=== PATIENT | female | born 1990 | race African-American/Black ===

== ENCOUNTER 2016-11-09 11:53 | Emergency (ER) | payer OTHER ==
[~2016-11-09] VITALS: Ht 162.6 cm; Wt 125.4 kg
[~2016-11-09 11:53] MED LIST: OXYC-57 PO
[2016-11-09 12:15] VITALS: TEMP 36.9; Ht 162.6 cm; Wt 125.4 kg
[2016-11-09] MEDS ORDERED: SODIUM CHLORIDE 0.9% 1000ML 1,000 ML IV STA (12:51)
--- NOTE | 2016-11-09 12:55 | EMERGENCY ROOM VISIT NOTE ---
History Report prepared by Patrick: Demi Amaya Under the Supervision of: Amanda CarsonO. First contact with patient: 12:44 Chief Complaint: ABDOMINAL PAIN Stated Complaint: BELLY PAIN, LIGHTHEADED, NOSEBLEED EARLIER TODAY History of Present Illness The patient is a 26 year old female who presents to the Emergency Room with complaints of constant right sided abdominal pain that began yesterday. She describes the pain as a stabbing. she took Motrin without relief. She also complains of lightheadedness and mild dizziness. She has been having a looser BM . She had a nosebleed earlier today that resolved on its own. She denies any other recent nosebleeds. The patient reports having similar abdominal pain when she was diagnosed with a gallstone, which was removed laparoscopically. The patient had her menstrual period this month and does not think there is a chance of . No personal history of kidney stones. Denies fevers, cough , cold symptoms, vomiting, urinary symptoms, or other complaints. She does not recall eating anything unusual recently. Source of History: patient Onset: yesterday Position: abdomen (right side) Quality: stabbing Timing: constant Associated Symptoms: + diarrhea Note: Other symptoms: lightheadedness, mild dizziness, nosebleed Review of Systems See HPI for pertinent positives & negatives. A total of 10 systems reviewed and were otherwise negative. Past Medical & Surgical Medical Problems: (1) Gallstone Family History Heart disease Social History Smoking Status: Never Smoker Smokeless Tobacco Use: No Alcohol Use: none Housing Status: lives with family Occupation Status: unemployed Current/Historical Medications Scheduled PRN Oxycodone/Acetaminophen 5MG/325MG (Percocet 5MG/325MG), 1-2 TAB PO Q4H PRN for Pain Oxycodone/Acetaminophen 5MG/325MG (Percocet 5MG/325MG), 1-2 TABS PO Q4 PRN for Pain Allergies Coded Allergies: No Known Allergies (Unverified , 11/09/16) Physical Exam Vital Signs Date Time Temp Pulse Resp B/P Pulse Ox O2 Delivery O2 Flow Rate FiO2 11/09/16 15:13 64 16 96/64 100 11/09/16 13:57 62 20 138/88 11/09/16 12:15 36.9 67 18 137/89 97 Room Air Physical Exam GENERAL: The patient is a pleasant 26 year old female in mild distress. VITALS: Afebrile, normal vital signs, normal pulse oximetry on room air. NOSE: No active epistaxis or abnormality noted. THROAT: No pharyngeal injection, exudates, or tonsillar hypertrophy. Airway is patent. NECK: Supple, nontender, no lymphadenopathy or nuchal rigidity. THORAX : Symmetrical and nontender to palpation without deformity or palpable crepitus. LUNGS : Clear without wheezing, rhonchi, or rales HEART: Regular rate and rhythm ABDOMEN: Obese, soft, right upper quadrant and right mid-quadrant tenderness without guarding, rigidity, or rebound tenderness. Bowel sounds are present in all 4 quadrants. There are no palpable masses or organomegaly although exam is limited by body habitus. No CVA tenderness. Femoral pulses are symmetrical EXTREMITIES : Without deformity or point tenderness. There are no palpable cords, edema, or erythema.. NEUROLOGIC: Intact without focal deficits Medical Decision & Procedures ER Provider Diagnostic Interpretation: Radiology results as stated below per my review and radiologist interpretation: ABDOMEN AND PELVIS CT WITHOUT CONTRAST CT DOSE: 1235.90 mGycm HISTORY: Pain rug pain sp renetta TECHNIQUE: Multiaxial CT images of the abdomen and pelvis were performed without the use of intravenous and oral contrast according to the standard department stone protocol. COMPARISON STUDY: None. FINDINGS: Lung bases are considered clear. Prior cholecystectomy. No evidence for abscess or collection. Liver spleen and pancreas are uniform. Kidneys negative for calcification or hydronephrosis. Bowel pattern is nonobstructive. The appendix is normal. The uterus is anteflexed. There is no significant free fluid within the pelvic cul-de-sac. IMPRESSION: Negative study of the abdomen and pelvis post cholecystectomy . Electronically signed by: Lacho Schneider M.D. 11/09/2016 2:40 PM Dictated Date/Time: 11/09/2016 2:36 PM Laboratory Results 11/09/16 13:05 Red Blood Count 4.67, Mean Corpuscular Volume 76.2, Mean Corpuscular Hemoglobin 25.3, Mean Corpuscular Hemoglobin Concent 33.1, Neutrophils (%) (Auto) 46.9, Lymphocytes (%) (Auto) 38.2, Monocytes (%) (Auto) 8.4, Eosinophils (%) (Auto) 6.3, Basophils (%) (Auto) 0.2, Neutrophils # (Auto) 3.06, Lymphocytes # (Auto) 2.49, Monocytes # (Auto) 0.55, Eosinophils # (Auto) 0.41, Basophils # (Auto) 0.01 11/09/16 13:05 Test 11/09/16 13:05 11/09/16 13:15 White Blood Count 6.52 K/uL (4.8-10.8) Red Blood Count 4.67 M/uL (4.2-5.4) Hemoglobin 11.8 g/dL (12.0-16.0) Hematocrit 35.6 % (37-47) Mean Corpuscular Volume 76.2 fL (80-100) Mean Corpuscular Hemoglobin 25.3 pg (25-34) Mean Corpuscular Hemoglobin Concent 33.1 g/dl (32-36) Platelet Count 175 K/uL (130-400) Neutrophils (%) (Auto) 46.9 % Lymphocytes (%) (Auto) 38.2 % Monocytes (%) (Auto) 8.4 % Eosinophils (%) (Auto) 6.3 % Basophils (%) (Auto) 0.2 % Neutrophils # (Auto) 3.06 K/uL (1.4-6.5) Lymphocytes # (Auto) 2.49 K/uL (1.2-3.4) Monocytes # (Auto) 0.55 K/uL (0.11-0.59) Eosinophils # (Auto) 0.41 K/uL (0-0.5) Basophils # (Auto) 0.01 K/uL (0-0.2) RDW Standard Deviation 47.7 fL (36.4-46.3) RDW Coefficient of Variation 17.1 % (11.5-14.5) Immature Granulocyte % (Auto) 0.0 % Immature Granulocyte # (Auto) 0.00 K/uL (0.00-0.02) Anion Gap 6.0 mmol/L (3-11) Est Creatinine Clear Calc Drug Dose 161.4 ml/min Estimated GFR () 138.0 Estimated GFR (Non- 119.0 BUN/Creatinine Ratio 19.7 (10-20) Calcium Level 9.0 mg/dl (8.5-10.1) Total Bilirubin 0.5 mg/dl (0.2-1) Aspartate Amino Transf (AST/SGOT) 15 U/L (15-37) Alanine Aminotransferase (ALT/SGPT) 25 U/L (12-78) Alkaline Phosphatase 76 U/L (45-117) Total Protein 7.9 gm/dl (6.4-8.2) Albumin 3.5 gm/dl (3.4-5.0) Globulin 4.4 gm/dl (2.5-4.0) Albumin/Globulin Ratio 0.8 (0.9-2) Lipase 152 U/L (73-393) Urine Test NEG (NEG) Laboratory studies as stated above per my review. Medications Administered Medications (Trade) Dose Ordered Sig/Susan Route Start Time Stop Time Status Last Admin Dose Admin Sodium Chloride (Nss 1000ml) 1,000 ml @ 250 mls/hr Q4H STAT IV 11/09/16 12:51 11/09/16 15:31 DC 11/09/16 12:51 250 MLS/HR Ketorolac Tromethamine (Toradol Inj) 30 mg NOW ONCE IV 11/09/16 13:00 11/09/16 13:01 DC 11/09/16 13:23 30 MG Ondansetron HCl (Zofran Inj) 4 mg NOW ONCE IV 11/09/16 13:00 11/09/16 13:01 DC 11/09/16 13:23 4 MG ED Course 1247: The patient was evaluated in room A9. A complete history and physical examination was performed. On examination she had tenderness in her right upper and mid quadrants. She did not have any obstructive or peritoneal signs. An IV of normal saline was established and she was medicated with 4 mg of IV Zofran and 30 mg of IV Toradol. She had minimal improvement with this. She declined other pain meds. On diagnostic testing- CBC is within normal limits and not suggestive of infection. No anemia. Her urine test is negative. A urine specimen dipped in the emergency room is negative. No infection. Chemistries are normal. Lipase is normal and not suggestive of pancreatitis. CT scan of her abdomen and pelvis does not show any acute abnormalities. She does not have any evidence of ureteral stone. On reexamination she appears comfortable. Her abdominal exam remains unchanged. The etiology of her abdominal pain is unclear. I query whether she may have some adhesions. She does not have any findings to suggest an acute infectious process. I do not think that her pain is gynecologic and has no evidence of kidney stone. At that time the patient is being discharged home with instructions on symptomatic care. She's been provided a prescription for a limited number of Percocet. She should have close outpatient follow-up with her personal physician. She is to return if she has worsening symptoms or concerns. The patient is comfortable with this treatment plan. 1251: Ordered NSS 1000 ml @ 250 mls/hr IV. 1300: Ordered Zofran Inj 4 mg IV, Toradol Inj 30 mg IV. 1356: I reassessed the patient. She was still in pain but did not want anything for her pain at this time. 1456: Reevaluated the patient. Discussed results and discharge instructions; She verbalized understanding and agreement. The patient was discharged home. Medical Decision EMR, nurse's notes, diagnostic studies personally reviewed Differential diagnosis-see above The chart was completed utilizing [employer] Speech Voice Recognition Software. Grammatical errors, random word insertions, pronoun errors, and incomplete sentences are an occasional consequence of this system due to software limitations, ambient noise, and hardware issues. Any formal questions or concerns about the content, text, or information contained within the body of this dictation should be directly addressed to the physician for clarification. Impression Primary Impression: Right sided abdominal pain Scribe Attestation The scribe's documentation has been prepared under my direction and personally reviewed by me in its entirety. I confirm that the note above accurately reflects all work, treatment, procedures, and medical decision making performed by me. Departure Information Dispostion Home / Self-Care Prescriptions Oxycodone/Acetaminophen 5MG/325MG (PERCOCET 5MG/325MG) Tab 1-2 TABS PO Q4 Y for Pain, #8 TAB Prov: Edna Alonso D.O. 11/09/16 Referrals No Doctor, Assigned (PCP) Chepe Smith M.D. (PSYCHIATRY) Forms HOME CARE DOCUMENTATION FORM, IMPORTANT VISIT INFORMATION Patient Instructions Abdominal Pain - [facility], [facility] Additional Instructions Light diet Rest, ibuprofen for pain 1 Percocet every 4-6 hours for severe pain Follow-up with your family doctor for recheck Return if worsening symptoms or concerns
[2016-11-09] MEDS ORDERED: ONDANSETRON INJ 2 MG/ML 2 ML VIAL IV ONE (13:00)
[2016-11-09] MEDS ORDERED: KETOROLAC TROMETHAMINE 30 MG/ML VIAL IV ONE (13:00)
[2016-11-09 13:30] LABS: BASO % 0.2 %; BASO ABS # 0.01 K/uL (0-0.2); COMPLETE YES; EOS % 6.3 %; HEMATOCRIT 35.6 % (37-47); LYMPH % 38.2 %; LYMPH ABS # 2.49 K/uL (1.2-3.4); MEAN CELL VOLUME 76.2 fL (80-100); MEAN CORPUSCULAR HEMOGLOBIN 25.3 pg (25-34); MEAN CORPUSCULAR HGB CONC 33.1 g/dl (32-36); MONO % 8.4 %; NEUT % 46.9 %; PLATELET COUNT 175 K/uL (130-400); RED BLOOD COUNT 4.67 M/uL (4.2-5.4); WHITE BLOOD COUNT 6.52 K/uL (4.8-10.8)
[2016-11-09 13:56] LABS: BUN/CREATININE RATIO 19.7 (10-20); CREATININE 0.68 mg/dl (0.60-1.20); POTASSIUM 3.8 mmol/L (3.5-5.1)
[2016-11-09 13:59] LABS: ALB/GLOB RATIO 0.8 (0.9-2)
--- NOTE | 2016-11-09 14:42 | DIAGNOSTIC IMAGING REPORT ---
ABDOMEN AND PELVIS CT WITHOUT CONTRAST CT DOSE: 1235.90 mGycm HISTORY: Pain rug pain sp renetta TECHNIQUE: Multiaxial CT images of the abdomen and pelvis were performed without the use of intravenous and oral contrast according to the standard department stone protocol. COMPARISON STUDY: None. FINDINGS: Lung bases are considered clear. Prior cholecystectomy. No evidence for abscess or collection. Liver spleen and pancreas are uniform. Kidneys negative for calcification or hydronephrosis. Bowel pattern is nonobstructive. The appendix is normal. The uterus is anteflexed. There is no significant free fluid within the pelvic cul-de-sac. IMPRESSION: Negative study of the abdomen and pelvis post cholecystectomy . Electronically signed by: Lacho Schneider M.D. 11/09/2016 2:40 PM Dictated Date/Time: 11/09/2016 2:36 PM
[2016-11-09] MEDS ORDERED: OXYC-57 PO (14:53)
[2016-11-09 15:13] VITALS: BP 96/64; PULSE 64; O2SAT 100
== END 2016-11-09 15:15 | disposition home or self-care (01) ==
LOC: C.EDB 11:55 → C.EDA 15:15
DX: R10.9 Unspecified abdominal pain (principal)

== ENCOUNTER 2016-12-01 13:55 | Emergency (ER) | payer OTHER ==
[~2016-12-01] VITALS: Ht 165.1 cm; Wt 126.2 kg
[2016-12-01 14:10] VITALS: TEMP 36.9; Ht 165.1 cm; Wt 126.2 kg
[2016-12-01] MEDS: PROMETHAZINE HCL 25 MG TAB PO ONE ×2 (14:57→15:35)
[2016-12-01 14:59] LABS: URINE APPEARANCE CLOUDY (CLEAR); URINE BILIRUBIN NEG (NEG); URINE COLOR YELLOW; URINE EPITHELIAL CELL AUTO >30 /lpf (0-5); URINE NITRITE NEG (NEG); URINE PH 6.5 (4.5-7.5); URINE SPECIFIC GRAVITY 1.024 (1.000-1.030); UROBILINOGEN NEG (NEG)
[2016-12-01 15:06] LABS: MANUAL MICROSCOPIC REQUIRED? NO; REVIEW REQ? YES
[2016-12-01 15:17] LABS: HEMATOCRIT 35.2 % (37-47); MEAN CELL VOLUME 77.2 fL (80-100); MEAN CORPUSCULAR HEMOGLOBIN 25.4 pg (25-34); PLATELET COUNT 166 K/uL (130-400); RED BLOOD COUNT 4.56 M/uL (4.2-5.4); WHITE BLOOD COUNT 6.03 K/uL (4.8-10.8)
[2016-12-01 15:18] LABS: URINE MUCUS PRESENT (NONE PRSENT)
[2016-12-01 15:19] LABS: ZZUR CULT IF INDIC CLEAN CATCH YES
[2016-12-01 15:37] LABS: BUN/CREATININE RATIO 11.6 (10-20); CALCIUM 8.6 mg/dl (8.5-10.1); CREATININE 0.53 mg/dl (0.60-1.20); POTASSIUM 3.6 mmol/L (3.5-5.1)
--- NOTE | 2016-12-01 16:16 | DIAGNOSTIC IMAGING REPORT ---
Limited ultrasound <14 WKS SINGLE CLINICAL HISTORY: Pain nausea TECHNIQUE: Ultrasound COMPARISON STUDY: None FINDINGS: An intrauterine gestational sac is confirmed. 2 very small subchorionic bleeds are present at the limits of resolution. A viable pole is not confirmed. May be secondary to the early gestational age. Small left ovarian corpus sodium cyst. Vascular flow is confirmed to both ovaries. IMPRESSION: 1. Small intrauterine gestational sac. 2. Due to the early gestational age, definite confirmation of viability as well as a pole could not be performed. 3. 2 very small subchorionic bleeds measuring less than 1 cm. 4. A repeat study in 7-10 days is recommended to confirm viability Electronically signed by: Lacho Schneider M.D. 12/01/2016 4:14 PM Dictated Date/Time: 12/01/2016 4:11 PM
[2016-12-01] MEDS ORDERED: ONDA4TAB10 SL (16:52)
--- NOTE | 2016-12-01 16:53 | EMERGENCY ROOM VISIT NOTE ---
History Report prepared by Patrick: Josselin Ramos Under the Supervision of: Dr. Biju Zimmerman M.D. First contact with patient: 14:34 Chief Complaint: FLANK PAIN Stated Complaint: FLANK PAIN History of Present Illness The patient is a 26 year old female who presents to the Emergency Room with complaints of worsening bilateral flank pain that started 3 days ago. The patient is also experiencing nausea and vomiting with eating. She denies abdominal pain, any vaginal bleeding or discharge, and lower extremity edema. The patient is not on control and states that her last normal menstrual period was last month, but she does not suspect that she is . However, the patient's urine test today was positive for . The patient has two kids at home and this is her third . Source of History: patient Onset: 3 days ago Position: back (bilateral) Quality: other (flank pain) Timing: worsening Associated Symptoms: + nausea, + vomiting, No abdominal pain Note: no vaginal bleeding or discharge, no lower extremity edema Review of Systems See HPI for pertinent positives & negatives. A total of 10 systems reviewed and were otherwise negative. Past Medical & Surgical Medical Problems: (1) Gallstone Family History Heart disease Social History Smoking Status: Former Smoker Alcohol Use: none Housing Status: lives with family Occupation Status: unemployed Current/Historical Medications Scheduled Cephalexin Monohydrate (Keflex), 500 MG PO TID Ondasetron Odt (Zofran Odt), 4-8 MG SL Q6H Scheduled PRN Oxycodone/Acetaminophen 5MG/325MG (Percocet 5MG/325MG), 1-2 TAB PO Q4H PRN for Pain Allergies Coded Allergies: No Known Allergies (Unverified , 12/01/16) Physical Exam Vital Signs Date Time Temp Pulse Resp B/P Pulse Ox O2 Delivery O2 Flow Rate FiO2 12/01/16 17:00 62 20 134/72 97 12/01/16 16:50 62 20 134/72 97 Room Air 12/01/16 14:58 63 20 107/70 97 Room Air 12/01/16 14:10 36.9 64 18 107/81 100 Room Air Physical Exam GENERAL: Patient is well appearing and in minimal distress. HEENT: No acute trauma, normocephalic atraumatic, mucous membranes moist, no nasal congestion, no scleral icterus. NECK: No stridor, no adenopathy, no meningismus, trachea is midline. LUNGS: No dyspnea. Clear to auscultation and equal bilaterally. No wheeze, no rhonchi. HEART: Regular rate and rhythm. No murmurs, rubs, gallops appreciated. ABDOMEN: Soft, nontender, bowel sounds positive, no masses appreciated, no peritonitis. BACK: No midline tenderness, no CVA tenderness EXTREMITIES: Normal motion all extremities, no cyanosis, no edema. NEUROLOGIC: Alert and oriented, no acute motor or sensory deficits, no focal weakness, cranial nerves grossly intact. SKIN: No rash, no jaundice, no diaphoresis. Medical Decision & Procedures ER Provider Diagnostic Interpretation: US results and stated below per my review and radiologist interpretation: Limited ultrasound <14 WKS SINGLE IMPRESSION: 1. Small intrauterine gestational sac. 2. Due to the early gestational age, definite confirmation of viability as well as a pole could not be performed. 3. 2 very small subchorionic bleeds measuring less than 1 cm. 4. A repeat study in 7-10 days is recommended to confirm viability Electronically signed by: Lacho Schneider M.D. 12/01/2016 4:14 PM Dictated Date/Time: 12/01/2016 4:11 PM Laboratory Results 12/01/16 15:06 12/01/16 15:06 Test 12/01/16 14:00 12/01/16 14:18 12/01/16 15:06 Urine Color YELLOW Urine Appearance CLOUDY (CLEAR) Urine pH 6.5 (4.5-7.5) Urine Specific [place] 1.024 (1.000-1.030) Urine Protein NEG (NEG) Urine Glucose (UA) NEG (NEG) Urine Ketones 1+ (NEG) Urine Occult Blood NEG (NEG) Urine Nitrite NEG (NEG) Urine Bilirubin NEG (NEG) Urine Urobilinogen NEG (NEG) Urine Leukocyte Esterase TRACE (NEG) Urine WBC (Auto) 10-30 /hpf (0-5) Urine RBC (Auto) 0-4 /hpf (0-4) Urine Hyaline Casts (Auto) 5-10 /lpf (0-5) Urine Epithelial Cells (Auto) >30 /lpf (0-5) Urine Bacteria (Auto) 2+ (NEG) Urine Renal Epithelial Cells /lpf (0-5) Urine Mucus PRESENT (NONE PRSENT) Urine Test POS (NEG) Bedside Glucose 75 mg/dl (70-90) Red Blood Count 4.56 M/uL (4.2-5.4) Mean Corpuscular Volume 77.2 fL (80-100) Mean Corpuscular Hemoglobin 25.4 pg (25-34) Mean Corpuscular Hemoglobin Concent 33.0 g/dl (32-36) RDW Standard Deviation 49.6 fL (36.4-46.3) RDW Coefficient of Variation 17.7 % (11.5-14.5) Anion Gap 8.0 mmol/L (3-11) Est Creatinine Clear Calc Drug Dose 211.3 ml/min Estimated GFR () 149.8 Estimated GFR (Non- 129.2 BUN/Creatinine Ratio 11.6 (10-20) Calcium Level 8.6 mg/dl (8.5-10.1) Human Chorionic Gonadotropin, Quant 45175 mIU/mL Laboratory results as reviewed by me. ED Course 1436: The patient was evaluated in room B4. A complete history and physical exam was performed. 1645: Reevaluated the patient. Discussed results and discharge instructions: she verbalized understanding and agreement. The patient is ready for discharge. Medical Decision Differential: Appendicitis, Ovarian Torsion, PID, Tubo-ovarian Abscess, Intrauterine , Ectopic , Endometriosis, amongst other pathologies entertained. 26 yr old female arrives with lower pelvic pain radiating to back with nausea/ vomiting post eating. She has + U pregn and HCG 92118. IUP by US. A+. Does have subchor hemorrhages on US which I have explained may increase miscarriage risk. Given amount of vomiting will start on Zofran. Labs look good. Bacteria in urine and as will treat asymptomatic bacteruria. Stable and otherwise looks well. Discussed importance of OB follow up and she already follows with [facility]. This is 3rd . Impression Primary Impression: Intrauterine Additional Impressions: Subchorionic hemorrhage in first trimester Bacteria in urine Scribe Attestation The scribe's documentation has been prepared under my direction and personally reviewed by me in its entirety. I confirm that the note above accurately reflects all work, treatment, procedures, and medical decision making performed by me. Departure Information Dispostion Home / Self-Care Prescriptions Cephalexin Monohydrate (KEFLEX) 500 Mg Cap 500 MG PO TID for 5 Days, #15 CAP Prov: Biju Zimmerman M.D. 12/01/16 Ondasetron Odt (ZOFRAN ODT) 4 Mg Tab 4-8 MG SL Q6H for Nausea, #20 TAB Prov: Biju Zimmerman M.D. 12/01/16 Referrals Chepe Smith M.D. (PSYCHIATRY) (PCP) Forms HOME CARE DOCUMENTATION FORM, IMPORTANT VISIT INFORMATION Patient Instructions ED Preg Morning Sickness, [facility] [place] [facility] Problem Qualifiers
[2016-12-01 17:00] VITALS: BP 134/72; PULSE 62; O2SAT 97
[2016-12-01] MEDS ORDERED: CEPH500C2 PO (17:43)
== END 2016-12-01 17:11 | disposition home or self-care (01) ==
LOC: EDBD 13:55 → C.EDB 13:56
DX: O20.8 Other hemorrhage in early pregnancy (principal); Z3A.00 Weeks of gestation of pregnancy not specified; R82.71 Bacteriuria; Z87.891 Personal history of nicotine dependence

== ENCOUNTER 2017-07-06 23:46 | Inpatient (IN) | payer OTHER ==
[~2017-07-06] VITALS: Ht 165.1 cm; Wt 130.0 kg
[2017-07-06] MEDS ORDERED: LACTATED RINGER'S 1000ML 1,000 ML IV SCH (23:59)
[2017-07-07] VITALS (22 sets, daily range): BP systolic 111–139; BP diastolic 66–91; PULSE 58–91; TEMP 36.4–37.5; O2SAT 96–99; Ht 165.1 cm; Wt 130.0 kg
[2017-07-07] MEDS ORDERED: CITRIC ACID/SODIUM CITRATE 15 ML UDC PO ONE
--- NOTE | 2017-07-07 00:05 | Progress Note ---
Progress Note Date of Service Jul 07, 2017. Progress Note Admit Note 26 F P2002 at 37.2 weeks admitted after coming to L&D by ambulance with onset of labor and contractions. She has a history of 2 prior C-sections and was planning a repeat with a tubal ligation. GBS is positive, Cervix is 2/50/-3. T Cat 1. Will set up for repeat and bilateral tubal ligation.
[2017-07-07] MEDS ORDERED: CEFAZOLIN IV 3,000 MG in SYRINGE 0 ML IV ONE (00:15)
[2017-07-07] MEDS ORDERED: PRENTAB26 PO (00:42)
[2017-07-07] MEDS ORDERED: MoRPHine SULFATE PF 1 MG/ML 10 ML AMP/VIAL ONE (00:53)
[2017-07-07] MEDS ORDERED: FENTANYL CITRATE INJ 50 MCG/1 ML 2 ML VIAL ONE (00:53)
[2017-07-07] MEDS ORDERED: OXYTOCIN INJ 10 UNITS/ML VIAL ONE ×2 (00:54)
[2017-07-07] MEDS ORDERED: ATROPINE SULFATE 0.1 MG/ML 5ML SYR IV PRN (01:45)
[2017-07-07] MEDS ORDERED: PROMETHAZINE HCL INJ 12.5 MG in SODIUM CHLORIDE 0.9% 50ML 50 ML IV PRN (01:45)
[2017-07-07] MEDS ORDERED: PHENYLEPHRINE 100MCG/ML 5ML SYR IV PRN (01:45)
[2017-07-07] MEDS ORDERED: FENTANYL CITRATE INJ 50 MCG/1 ML 2 ML VIAL IV PRN (01:45)
[2017-07-07] MEDS ORDERED: ONDANSETRON INJ 2 MG/ML 2 ML VIAL IV PRN ×2 (01:45→05:00)
[2017-07-07] MEDS ORDERED: EpHEDrine SULFATE INJ 50 MG/ML AMP IV PRN ×2 (01:45→05:00)
[2017-07-07 01:51] LABS: HEMATOCRIT 32.1 % (37-47); MEAN CELL VOLUME 79.7 fL (80-100); MEAN CORPUSCULAR HEMOGLOBIN 25.6 pg (25-34); PLATELET COUNT 184 K/uL (130-400); RED BLOOD COUNT 4.03 M/uL (4.2-5.4); WHITE BLOOD COUNT 8.06 K/uL (4.8-10.8)
[2017-07-07 01:55] LABS: MEAN CORPUSCULAR HGB CONC 32.1 g/dl (32-36)
[2017-07-07] MEDS ORDERED: HYDROCORTISONE ACETATE 25 MG SUPP PR PRN (04:45)
[2017-07-07] MEDS ORDERED: BENZOCAINE 20% AER SPR 82.5 GM CAN EXT PRN (04:45)
[2017-07-07] MEDS ORDERED: LANOLIN OINT EXT PRN ×2 (04:45)
[2017-07-07] MEDS ORDERED: SENNA 8.6 MG TAB PO PRN (04:45)
[2017-07-07] MEDS ORDERED: DIPHTHERIA/TETANUS/PERTUSSIS 0.5 ML SYR/VIAL IM. ONE (04:45)
[2017-07-07] MEDS ORDERED: MAGNESIUM HYDROXIDE SUSP 30 ML UDC PO PRN (04:45)
[2017-07-07] MEDS ORDERED: SUPERCREAM 0.870 % 15GM JAR EXT PRN (04:45)
--- NOTE | 2017-07-07 04:51 | [facility] Post Operative Brief Note ---
Immediate Operative Summary Operative Date Jul 07, 2017. Pre-Operative Diagnosis Repeat Caesarean Section in Labor Post-Operative Diagnosis Same Procedure(s) Performed Repeat Caerarean Section for the of a viable female child at 0343. Surgeon Lever Miller Surgeon(s) Estimated Blood Loss 600 ML Findings live female Apgars 8/9 weight pending Fluids (cc crystalloids) LR Specimens Placenta - Exam Cord Blood Drains Ray Anesthesia Spinal with duramorph Complication(s) None Disposition L&D
[2017-07-07] MEDS ORDERED: LACTATED RINGER'S 1000ML 500 ML IV PRN (04:58)
[2017-07-07] MEDS ORDERED: SODIUM CHLORIDE 0.9% 1000ML 1,000 ML IV PRN (04:58)
[2017-07-07] MEDS ORDERED: NALOXONE HCL INJ 1 MG in SODIUM CHLORIDE 0.9% 1000ML 1,000 ML IV PRN ×4 (04:58)
[2017-07-07] MEDS ORDERED: NALOXONE HCL INJ 0.08 MG in SYRINGE 1.8 ML IV PRN (04:58)
[2017-07-07] MEDS ORDERED: NALBUPHINE HCL INJ 10 MG/ML AMP IV PRN (05:00)
[2017-07-07] MEDS ORDERED: NO NARCOTICS OR SEDATIVES SCH (05:00)
[2017-07-07] MEDS ORDERED: NALOXONE HCL 0.4 MG/1 ML VIAL/CARP IV PRN (05:00)
[2017-07-07] MEDS ORDERED: METOCLOPRAMIDE HCL INJ 20 MG in SODIUM CHLORIDE 0.9% 50ML 50 ML IV PRN (05:00)
[2017-07-07] MEDS ORDERED: MoRPHine SULFATE 2 MG/ML CARP IV PRN (05:00)
[2017-07-07] MEDS ORDERED: PROMETHAZINE HCL INJ 25 MG in SODIUM CHLORIDE 0.9% 50ML 50 ML IV PRN (05:00)
[2017-07-07] MEDS ORDERED: KETOROLAC TROMETHAMINE 30 MG/ML VIAL IV. PRN (05:00)
[2017-07-07] MEDS ORDERED: DiphenhydrAMINE HCL 50 MG/ML VIAL IV PRN ×2 (05:00→20:00)
[2017-07-07] MEDS ORDERED: MoRPHine SULFATE PF 1 MG/ML 10 ML AMP/VIAL EPI PRN (05:00)
[2017-07-07] MEDS ORDERED: KETOROLAC TROMETHAMINE 30 MG/ML VIAL ONE (05:02)
[2017-07-07] MEDS: OXYTOCIN INJ 30 UNITS in LACTATED RINGER'S 1000ML 1,000 ML IV SCH ×2 (05:36→13:45)
--- NOTE | 2017-07-07 06:35 | Anesthesiology Progress Note ---
Anesthesia Post Op Note Date & Time Jul 07, 2017 at 06:34 Vital Signs Pain Intensity: 8.0 Notes Mental Status: alert / awake / arousable, participated in evaluation Pt Amnestic to Procedure: Yes Nausea / Vomiting: adequately controlled Pain: adequately controlled Airway Patency, RR, SpO2: stable & adequate BP & HR: stable & adequate Hydration State: stable & adequate Neuraxial Anesthesia: was administered, sensory block is resolving Anesthetic Complications: no major complications apparent
[2017-07-07] MEDS: MEPERIDINE HCL 25 MG/ML CARP IV PRN ×2 (06:49→11:37)
[2017-07-07] MEDS: FERROUS SULFATE 325 MG TAB PO SCH (08:00)
[2017-07-07] MEDS: DOCUSATE SODIUM 100 MG CAP PO SCH ×2 (08:00→20:39)
[2017-07-07] MEDS: PRENATAL VITAMIN TAB PO SCH (08:00)
--- NOTE | 2017-07-07 09:29 | OPERATIVE REPORT ---
DATE OF OPERATION: 07/07/2017 PREOPERATIVE DIAGNOSIS: Term elective repeat section in labor. POSTOPERATIVE DIAGNOSIS: Same. PROCEDURE: Repeat section. SURGEON: Hayes Saavedra MD. LOCATION MAN: Emile Sanchez DO. ANESTHESIA: Spinal. CLINICAL HISTORY: The patient is a 26-year-old female para 2-0-0-2, who is admitted for a repeat section in labor. The patient was given informed consent including the risks and benefits of the procedure. DESCRIPTION OF PROCEDURE: After satisfactory spinal anesthesia, the patient was prepped and draped in usual sterile fashion. Antibiotics were given preop and the patient had a time out prior to the start of the procedure. A low Pfannenstiel incision through a prior scar was then made entering into the abdominal cavity in successive layers without difficulty. Upon entering into the peritoneal cavity, the uterus was found to be stuck to the abdominal wall and this was extensively dissected off with lysis of adhesion, especially to the left fundal uterine anterior portion of the uterus. After this was successfully released, a low transverse incision over the lower uterine segment was made. The bladder flap area was also densely adhesed and higher than normal incision on the myometrium was made. The incision was then widened in the AP diameter. Amniotic sac was nicked. Clear fluid was noted. The was then delivered with fundal pressure delivering a live female, Apgars were 8 and 9. weight is pending. The cord was doubly clamped and cut. Baby handed to leadership program associate. Cord blood was obtained. Placenta delivered spontaneously and intact. Uterus was then able to be exteriorized. Ring forceps were then placed on both angles in the inferior margin. The uterus was closed in double layer closure with 0 Vicryl suture in a continuous interlocking fashion by a second imbricating suture. There were several areas on the left side of the uterus that were oozing at the site of the dissection for the adhesions. Several running interrupted 3-0 Vicryl sutures were placed and then several 0 Vicryl [id number] sutures were placed. Adequate hemostasis was maintained. Powder was then used over this area and over the lower uterine segment where the bladder flap was made. The contents of the pelvic cavity was then irrigated to clear. No bleeding noted at the time of closure. The fascia was then reapproximated with 0 Vicryl suture in a continuous fashion. Subcuticular space was closed with 3-0 plain suture and the skin was reapproximated with jakub. Clear urine was noted from the Ray. Estimated blood loss 600 mL. The final sponge, needle and instrument count were found to be correct. The patient tolerated the procedure well and then she was moved to recovery room in stable condition. I attest to the content of the Intraoperative Record and any orders documented therein. Any exception s are noted below.
[2017-07-07] MEDS: SIMETHICONE 80 MG CHEW PO SCH ×3 (11:42→20:39)
[2017-07-07] MEDS ORDERED: LACTATED RINGER'S 1000ML 1,000 ML IV SCH ×2 (13:30→22:30)
[2017-07-07] MEDS: HYDROmorphone INJ 2 MG/ML SYR/VIAL IV PRN ×2 (16:57→20:58)
[2017-07-07] MEDS: KETOROLAC TROMETHAMINE 30 MG/ML VIAL IV. PRN (20:57)
[2017-07-07] MEDS ORDERED: DC INTRASPINAL MORPHINE SCH (21:00)
[2017-07-07] MEDS ORDERED: MEPERIDINE HCL 50 MG/ML CARP IV PRN ×2 (21:00)
[2017-07-07] MEDS ORDERED: OXYCODONE/ACETAMINOPHEN 5-325 TAB PO PRN (21:00)
[2017-07-07] MEDS ORDERED: NURSING VERBAL MED ORDER ONE (22:15)
[2017-07-08] MEDS: KETOROLAC TROMETHAMINE 30 MG/ML VIAL IV. PRN (03:40)
[2017-07-08 04:30] VITALS: BP 136/82; PULSE 92; TEMP 37; O2SAT 97
[2017-07-08 06:50] LABS: HEMATOCRIT 29.1 % (37-47); MEAN CELL VOLUME 77.8 fL (80-100); MEAN CORPUSCULAR HEMOGLOBIN 25.4 pg (25-34); MEAN CORPUSCULAR HGB CONC 32.6 g/dl (32-36); PLATELET COUNT 170 K/uL (130-400); RED BLOOD COUNT 3.74 M/uL (4.2-5.4); WHITE BLOOD COUNT 14.27 K/uL (4.8-10.8)
[2017-07-08 08:00] VITALS: BP 134/84; PULSE 92; TEMP 36.8
[2017-07-08] MEDS: SIMETHICONE 80 MG CHEW PO SCH ×4 (08:00→20:36)
[2017-07-08] MEDS: FERROUS SULFATE 325 MG TAB PO SCH (08:00)
[2017-07-08] MEDS: DOCUSATE SODIUM 100 MG CAP PO SCH ×2 (08:00→20:36)
[2017-07-08] MEDS: PRENATAL VITAMIN TAB PO SCH (08:00)
[2017-07-08 08:14] LABS: BASO % 0.1 %; BASO ABS # 0.01 K/uL (0-0.2); COMPLETE YES; EOS % 0.1 %; IG% 0.6 %; LYMPH % 7.6 %; LYMPH ABS # 1.08 K/uL (1.2-3.4); MONO % 7.6 %
[2017-07-08] MEDS: IBUPROFEN 600 MG TAB PO PRN ×3 (09:58→20:35)
[2017-07-08] MEDS: OXYCODONE/ACETAMINOPHEN 5-325 TAB PO PRN ×3 (09:59→20:35)
--- NOTE | 2017-07-08 10:49 | Surgery Progress Note ---
Surgery Progress Note Date of Service Jul 08, 2017. 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, No nausea, No vomiting, No diet (Tolerating PO food and Meds) Objective Vital Signs: Date Time Temp Pulse Resp B/P (MAP) Pulse Ox O2 Delivery O2 Flow Rate FiO2 07/08/17 08:00 36.8 92 18 134/84 (101) Room Air 07/08/17 07:15 Room Air 07/08/17 04:30 37.0 92 20 136/82 (100) 97 Room Air 07/07/17 23:30 37.3 91 20 132/84 (100) 98 Room Air 07/07/17 23:30 Room Air 98.0 07/07/17 22:00 20 98 07/07/17 21:00 20 98 07/07/17 20:00 20 99 07/07/17 19:30 37.5 90 20 137/86 (103) Room Air 07/07/17 19:00 20 97 07/07/17 18:00 20 96 07/07/17 17:00 20 98 07/07/17 16:00 20 96 07/07/17 15:45 36.5 87 18 139/91 (107) 99 Room Air 07/07/17 15:30 20 98 07/07/17 15:30 Room Air 98 07/07/17 15:00 20 98 07/07/17 14:53 16 98 07/07/17 13:55 20 99 07/07/17 12:55 18 99 07/07/17 12:42 36.5 58 18 139/91 (107) 99 Room Air 07/07/17 11:55 20 98 07/07/17 11:45 36.5 87 20 139/91 (107) 98 Room Air 07/07/17 10:55 16 98 General Appearance: WD/WN, no apparent distress Head: normocephalic, atraumatic Neck: supple, no adenopathy, thyroid normal, no JVD, no carotid bruits, trachea midline Respiratory/Chest: chest non-tender, lungs clear, normal breath sounds, no respiratory distress, no accessory muscle use Cardiovascular: regular rate, rhythm, no edema, no gallop, no JVD, no murmur Abdomen: normal bowel sounds, non tender, non distended, soft, no organomegaly , no pulsatile mass Incision(s): clean, dry, intact, no erythema, no drainage Extremities: normal range of motion, non-tender, normal inspection, no pedal edema, no calf tenderness, normal capillary refill, pelvis stable Laboratory Results: Results Past 24 Hours Test 07/08/17 06:35 Range/Units White Blood Count 14.27 4.8-10.8 K/uL Red Blood Count 3.74 4.2-5.4 M/uL Hemoglobin 9.5 12.0-16.0 g/dL Hematocrit 29.1 37-47 % Mean Corpuscular Volume 77.8 80-100 fL Mean Corpuscular Hemoglobin 25.4 25-34 pg Mean Corpuscular Hemoglobin Concent 32.6 32-36 g/dl Platelet Count 170 130-400 K/uL Neutrophils (%) (Auto) 84.0 % Lymphocytes (%) (Auto) 7.6 % Monocytes (%) (Auto) 7.6 % Eosinophils (%) (Auto) 0.1 % Basophils (%) (Auto) 0.1 % Neutrophils # (Auto) 12.00 1.4-6.5 K/uL Lymphocytes # (Auto) 1.08 1.2-3.4 K/uL Monocytes # (Auto) 1.09 0.11-0.59 K/uL Eosinophils # (Auto) 0.01 0-0.5 K/uL Basophils # (Auto) 0.01 0-0.2 K/uL RDW Standard Deviation 45.9 36.4-46.3 fL RDW Coefficient of Variation 15.9 11.5-14.5 % Immature Granulocyte % (Auto) 0.6 % Immature Granulocyte # (Auto) 0.08 0.00-0.02 K/uL Assessment & Plan c/sec day #1 pt doing well no complaints
[2017-07-08 15:30] VITALS: BP 102/74; PULSE 93; TEMP 37.1
[2017-07-08] MEDS ORDERED: BISACODYL 5 MG TABEC PO ONE (22:00)
[2017-07-08 23:30] VITALS: BP 117/77; PULSE 92; TEMP 37; O2SAT 95
[2017-07-09] MEDS: IBUPROFEN 600 MG TAB PO PRN ×4 (00:44→21:43)
[2017-07-09] MEDS: OXYCODONE/ACETAMINOPHEN 5-325 TAB PO PRN ×6 (00:45→21:43)
[2017-07-09] MEDS ORDERED: BISACODYL 10 MG SUPP PR PRN (04:45)
[2017-07-09 07:58] VITALS: BP 138/93; PULSE 92; TEMP 37.1
[2017-07-09] MEDS: DOCUSATE SODIUM 100 MG CAP PO SCH ×2 (07:59→19:22)
[2017-07-09] MEDS: SIMETHICONE 80 MG CHEW PO SCH ×4 (07:59→19:22)
[2017-07-09] MEDS: PRENATAL VITAMIN TAB PO SCH (07:59)
[2017-07-09] MEDS: FERROUS SULFATE 325 MG TAB PO SCH (08:00)
[2017-07-09] MEDS: ONDANSETRON INJ 2 MG/ML 2 ML VIAL IV PRN ×2 (08:24→21:48)
--- NOTE | 2017-07-09 09:01 | Surgery Progress Note ---
Surgery Progress Note Date of Service Jul 09, 2017. 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, No nausea, No vomiting Objective Vital Signs: Date Time Temp Pulse Resp B/P (MAP) Pulse Ox O2 Delivery O2 Flow Rate FiO2 07/09/17 07:58 37.1 92 20 138/93 (108) Room Air 07/08/17 23:30 37.0 92 16 117/77 (90) 95 Room Air 07/08/17 23:30 95 Room Air 07/08/17 15:30 Room Air 07/08/17 15:30 37.1 93 20 102/74 (83) Room Air General Appearance: WD/WN, no apparent distress Head: normocephalic, atraumatic Neck: supple, no adenopathy, thyroid normal, no JVD, no carotid bruits, trachea midline Respiratory/Chest: chest non-tender, lungs clear, normal breath sounds, no respiratory distress, no accessory muscle use Cardiovascular: regular rate, rhythm, no edema, no gallop, no JVD, no murmur Abdomen: normal bowel sounds, non tender, non distended, soft, no organomegaly , no pulsatile mass Incision(s): clean, dry, intact, no erythema, no drainage Extremities: normal range of motion, non-tender, normal inspection, no pedal edema, no calf tenderness, normal capillary refill, pelvis stable Assessment & Plan c/sec day #2 pt doing well no complaints c/sec day #1 pt doing well no complaints
[2017-07-09 15:45] VITALS: BP 132/89; PULSE 84; TEMP 37.4
[2017-07-09 23:00] VITALS: BP 126/85; PULSE 74; TEMP 37.1; O2SAT 96
[2017-07-10] MEDS: IBUPROFEN 600 MG TAB PO PRN ×3 (04:35→13:39)
[2017-07-10] MEDS: OXYCODONE/ACETAMINOPHEN 5-325 TAB PO PRN ×3 (04:36→13:39)
--- NOTE | 2017-07-10 07:04 | Surgery Progress Note ---
Surgery Progress Note Date of Service Jul 10, 2017. 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, No nausea, No vomiting Objective Vital Signs: Date Time Temp Pulse Resp B/P (MAP) Pulse Ox O2 Delivery O2 Flow Rate FiO2 07/09/17 23:00 37.1 74 16 126/85 (99) 96 Room Air 07/09/17 23:00 Room Air 07/09/17 15:45 Room Air 07/09/17 15:45 37.4 84 20 132/89 (103) Room Air 07/09/17 08:00 Room Air 07/09/17 07:58 37.1 92 20 138/93 (108) Room Air General Appearance: WD/WN, no apparent distress Head: normocephalic, atraumatic Neck: supple, no adenopathy, thyroid normal, no JVD, no carotid bruits, trachea midline Respiratory/Chest: chest non-tender, lungs clear, normal breath sounds, no respiratory distress, no accessory muscle use Cardiovascular: regular rate, rhythm, no edema, no gallop, no JVD, no murmur Abdomen: normal bowel sounds, non tender, non distended, soft, no organomegaly , no pulsatile mass Incision(s): clean, dry, intact, no erythema, no drainage Extremities: normal range of motion, non-tender, normal inspection, no pedal edema, no calf tenderness, normal capillary refill, pelvis stable Assessment & Plan c/sec day #3 pt doing well no complaints d/c home with instructions c/sec day #2 pt doing well no complaints
[2017-07-10] MEDS ORDERED: FRRS300 PO (07:06)
[2017-07-10] MEDS ORDERED: CLC100 PO (07:06)
[2017-07-10] MEDS ORDERED: MTR600X PO (07:06)
[2017-07-10] MEDS ORDERED: OXYC-57 PO (07:06)
--- NOTE | 2017-07-10 07:07 | Discharge Instructions ---
Discharge Instructions Date of Service Jul 10, 2017. Admission Reason for Admission: Repeat In Labor Discharge Discharge Diagnosis / Problem: postop Discharge Goals Goal(s): Routine recovery after Activity Recommendations Activity Limitations: as noted below ACTIVITY RECOMMENDATIONS: * Gradual return to full activity over the next 2-3 weeks. * No lifting - nothing heavier than baby over the next 2-3 weeks. * Do not engage in vigorous exercise, sexual activity or sports until cleared by your physician. * Do not drive or operate any motorized equipment until cleared by your physician. * You may shower/bathe daily. BREAST CARE: If you are not breast feeding: * Wear a supportive bra 24 hours a day for one to two weeks. * Avoid stimulating your breasts and nipples as much as possible during the first few weeks after delivery. * When taking a shower, have the warm water hit your back, not breasts. * When your breasts feel full, apply ice packs. Usually three to four times a day helps ease the discomfort. * Take a mild pain medication (Tylenol/Motrin) when you are uncomfortable. If breast feeding: * Use breast milk to lubricate nipples. Lansinoh cream may be used for sore nipples. You do not need to remove cream prior to breast feeding. If using a different brand of cream, check the label for directions regarding removal of cream prior to nursing. * Wear a supportive bra. * If having problems with breasts or breast feeding, call a sap solution manager consultant or your health care provider. EPISIOTOMY CARE: After delivery, if you have an episiotomy (stitches), the following steps will ease discomfort and aid healing. * For the first 24 hours after delivery, place ice packs next to your episiotomy to help reduce swelling. * After the first 24 hour-period, sitz baths, either portable or in the tub, are suggested. A shower with a shower arm sprayed over the episiotomy may be comforting. * Hailey care should be done after each voiding and bowel movement. Squirt warm water from a plastic bottle over the perineum (region of the body between the anus and urinary opening) and pat dry. * Use Dermoplast to ease discomfort. Shake container. [place] directly over the episiotomy. * Place a Tucks on a clean sanitary pad next to your episiotomy. OVER THE COUNTER MEDICATION: * For discomfort or pain, you may use Acetaminophen (Tylenol), Ibuprofen (Advil ), or Naproxen (Aleve) following the package directions. * For constipation you may use Colace following the package directions. SPECIAL CARE INSTRUCTIONS: When you are discharged from the hospital, it is important for you to follow the instructions listed below: * During the first week at home, you should be able to care for yourself and your baby. In addition, the usual light household activities are encouraged. * Limit your activities to the way you feel. Do not try to clean the house or move furniture. Be sensible. * If you actively engage in sports and have done so up until the time of your delivery, you may resume these activities as soon as you feel able. This may take up to one month or even longer. Use good judgment. * Continue to take your vitamins for at least six weeks after the of your baby. * Your diet need not be limited unless you were on a special diet before your delivery. Breast-feeding mothers need around 2500 calories per day and at least 64-80 ounces of fluid per day (8 to 10 glasses). * You should eat foods from the four major food groups. Crash diets or fad diets are to be avoided. Eating lean meats, fresh fruits and vegetables, low-fat dairy products, high fiber foods and a regular exercise program, will help you get back to your pre- weight without putting your health at risk. * Constipation is sometimes a problem after delivery. Take a mild laxative as needed. If breast feeding, Milk of Magnesia is acceptable to use. You may use a suppository or Fleets enema if no episiotomy. * A daily shower or tub bath is suggested. Be sure to thoroughly and gently dry the perineum. * A bloody vaginal discharge will usually continue until around four weeks post . A small amount of bleeding may continue for as long as six weeks. Vaginal discharge changes from the bright red bleeding after delivery to pink then brownish and finally yellowish-pink before becoming white and disappearing. * Bleeding may increase with activity. Your first period may come in 4-8 weeks. If you are breast feeding, your period may be delayed even longer. * [place] (sex) can begin whenever both you and your partner feel comfortable and do not have any form of genital infection. It is recommended that you wait until after your return appointment and discuss with your physician. If you have questions, please talk to your health care practitioner. A condom should be used to prevent infection and . * Foreplay, gentle intercourse and lubrication is very important the first several times to prevent pain. A water-based lubricant such as K-Y jelly or Astroglide may be used. * Tampons may be used six weeks after delivery. * Douching should be avoided for 6 weeks after delivery. * If you have RH negative blood and your baby is RH positive, you will receive RHOGAM by injection prior to discharge. The nurse will give you a card to keep with you that has the date and place that you received RHOGAM after delivery. * During your care, you had a Rubella screen done to check for the presence of rubella antibodies in your blood. If your test was negative, you will receive a Rubella vaccine prior to discharge. This vaccine may cause a fever, soreness at the injection site and flu-like symptoms. If these symptoms persist, notify your health care practitioner. is not advised for three months after a Rubella vaccine. There is a higher chance of having a baby with defects if conceived within three months of getting the vaccine. * If you were discharged 24 hours from delivery or before 48 hours: Visiting nurses will come to your home 48 hours after discharge to assess you and your baby. The visiting nurse will meet with you while you are in the hospital to arrange a time and get directions to your home. * Verbalizes understanding of car seat law as reviewed with patient nursing. * Car Seat hand-out given and reviewed with patient by nursing. * Shaken baby information reviewed with patient by nursing. Call you doctor if: * Heavy bleeding (saturating several pads an hour) or passing clots the size of your fist. * A fever >101 degrees F (38.3 degrees C) on two occasions four hours apart and/or chills. * Unusual pain in the pelvic or vaginal areas. * "Baby Blues" lasting longer than two weeks. If you have any questions or concerns, call your health care practitioner at . FOLLOW-UP VISIT: * Please call the office at to schedule a 6 week examination. It is important you keep this appointment. * It is important for you to make arrangements for either yearly or twice yearly check-ups thereafter. . Current Hospital Diet Patient's current hospital diet: Regular OB Diet Discharge Diet Recommended Diet: Regular Diet Procedures Procedures Performed: Repeat Caerarean Section for the of a viable female child at 0343. Pending Studies Studies pending at discharge: no Medical Emergencies . Who to Call and When: Medical Emergencies: If at any time you feel your situation is an emergency, please call 911 immediately. . Non-Emergent Contact Non-Emergency issues call your: Specialist . . "Provider Documentation" section prepared by Eric Parker. . VTE Core Measure Inpt VTE Proph given/why not?: Treatment not indicated
[2017-07-10] MEDS: FERROUS SULFATE 325 MG TAB PO SCH (08:00)
[2017-07-10] MEDS: SIMETHICONE 80 MG CHEW PO SCH (09:09)
[2017-07-10] MEDS: PRENATAL VITAMIN TAB PO SCH (09:09)
[2017-07-10] MEDS: DOCUSATE SODIUM 100 MG CAP PO SCH (09:09)
[2017-07-10 09:40] VITALS: BP 128/64; PULSE 77; TEMP 36.6; O2SAT 97
[2017-07-10 13:53] VITALS: BP_DIAS 64; PULSE 77; TEMP 36.6
== END 2017-07-10 13:50 | disposition home or self-care (01) | DRG 766 ==
LOC: C.LD 23:46 → C.OPB 23:46 → C.LD 07-07 00:02 → C.OPB 07-07 00:03 → C.OBG 07-07 07:13
PROVIDERS: ADMIT Obstetrics & Gynecology; ATTEND Obstetrics & Gynecology
PROC: 10D00Z1 Extraction of Products of Conception, Low, Open Approach (ICD-10-PCS; principal; 2017-07-07 01:30)
DX: O34.219 Maternal care for unspecified type scar from previous cesarean delivery (principal); Z22.330 Carrier of Group B streptococcus; Z3A.37 37 weeks gestation of pregnancy